=== PATIENT | female | born 1960 | race Caucasian/White ===

== ENCOUNTER → 2017-12-09 19:11 | Outpatient (CLI) | payer MEDICARE ==
[2015-07-11 11:28] VITALS: BMI 23.4
[~2017-12-09 19:11] MED LIST: HYDROCODONE-APA1 TAB PO; NEURONTIN 300300 MG PO; SYNTHROID100 MCG PO; ULTRAM50 MG PO
== END | disposition home or self-care (01) ==
LOC: D.MAMMO 10:30
DX: Z12.31 Encounter for screening mammogram for malignant neoplasm of breast (principal)

== ENCOUNTER → 2020-04-19 11:45 | Outpatient (CLI) | payer MEDICARE ==
[2015-07-11 11:28] VITALS: BMI 23.4
== END | disposition home or self-care (01) ==
LOC: D.MAMMO 11:45
PROVIDERS: ATTEND Family Medicine
DX: Z12.31 Encounter for screening mammogram for malignant neoplasm of breast (principal)